=== PATIENT | female | born 1965 | race Caucasian/White ===

== ENCOUNTER → 2018-07-16 | Outpatient (CLI) | payer OTHER ==
[~2018-07-16] MED LIST: GADOBUTROL 10 ML VIAL IVP ONE
== END ==
LOC: FIMAGING 06:58
PROVIDERS: ATTEND Family Medicine
DX: N83.9 Noninflammatory disorder of ovary, fallopian tube and broad ligament, unspecified (principal); I87.8 Other specified disorders of veins
CPT/HCPCS: A9585

== ENCOUNTER 2019-01-13 05:52 | Day surgery (SDC) | payer OTHER | END 2019-01-13 10:36 | disposition home or self-care (01) | LOC: FSGY 05:52 ==